=== PATIENT | male | born 1965 | race Caucasian/White ===

== ENCOUNTER 2017-07-13 10:52 | Emergency (ER) | payer MEDICARE ==
[~2017-07-13] VITALS: Ht 172.7 cm; Wt 64.0 kg
[2017-07-13 11:53] LABS: BASOPHILS % 0.8 % (0.0-2.0); EOSINOPHILS % 0.4 % (0.0-5.0); HEMATOCRIT. 47.4 % (42.0-52.0); HEMOGLOBIN. 16.6 g/dL (14.0-18.0); LYMPHOCYTES % 16.2 % (20.0-50.0); MEAN CORPUSCULAR VOLUME 88.8 fL (80.0-94.0); MEAN PLATELET VOLUME 8.4 fl (7.4-10.4); MONOCYTES % 5.8 % (2.0-8.0); NEUTROPHILS % 76.8 % (40.0-76.0); PLATELET 373 x1000/uL (130-400); RED BLOOD CELL COUNT 5.34 mill/uL (4.7-6.1); RED CELL DISTRIBUTION WIDTH 14.1 % (11.6-14.6)
[2017-07-13 11:57] LABS: CHLORIDE 99 mEq/L (98-107)
[2017-07-13 12:24] LABS: ETHANOL BLOOD 352 mg/dL
[2017-07-13] MEDS ORDERED: POTASSIUM CHLORIDE 20MEQ/PACKET PO ONE (12:45)
[2017-07-13] MEDS ORDERED: POTASSIUM CHLORIDE 20MEQ TABLET SR PO ONE (12:45)
[2017-07-13] MEDS ORDERED: CHLORDIAZEPOXIDE 25MG CAPSULE PO ONE (14:45)
[2017-07-13] MEDS ORDERED: ONDANSETRON HCL 4MG/2ML VIAL IV ONE (15:15)
[2017-07-13 15:45] VITALS: BP 130/74
[2017-07-13 15:46] LABS: *AMPHETAMINES SCREEN URINE NEGATIVE (NEGATIVE); *BARBITURATES SCREEN URINE NEGATIVE (NEGATIVE); *BENZODIAZEPINES SCREEN URINE NEGATIVE (NEGATIVE); CANNABINOID URINE SCREEN NEGATIVE (NEGATIVE); METHADONE URINE SCREEN NEGATIVE (NEGATIVE); OPIATES URINE SCREEN PRESUMTIVE POSITIVE (NEGATIVE); PHENCYCLIDINE URINE SCREEN NEGATIVE (NEGATIVE)
[2017-07-13 15:47] LABS: *COCAINE SCREEN URINE NEGATIVE (NEGATIVE)
== END 2017-07-13 17:35 | disposition home or self-care (01) ==
LOC: ER 11:32
DX: T51.0X1A Toxic effect of ethanol, accidental (unintentional), initial encounter (principal); R41.82 Altered mental status, unspecified; Y92.480 Sidewalk as the place of occurrence of the external cause; R45.851 Suicidal ideations; E87.6 Hypokalemia; Y90.8 Blood alcohol level of 240 mg/100 ml or more; F10.229 Alcohol dependence with intoxication, unspecified; Z86.59 Personal history of other mental and behavioral disorders
CPT/HCPCS: 36415; 80053; 80305; 80307; 80329; 85025; 96374; 99284; G0482; J2405